=== PATIENT | female | born 1935 | race Caucasian/White ===

== ENCOUNTER 2016-07-10 09:42 | Day surgery (SDC) | payer MEDICARE, MEDICAID ==
[~2016-07-10 09:42] MED LIST: LACTATED RINGERS 1,000 ML IV SCH
[2016-07-10] MEDS ORDERED: IV START KIT ONE (10:09)
[2016-07-10] MEDS ORDERED: LACTATED RINGERS 0 ML ONE (10:09)
[2016-07-10] MEDS ORDERED: SODIUM CHLORIDE 0.9% 1,000 ML ONE (10:28)
[2016-07-10] MEDS ORDERED: ONDANSETRON 4 MG/2ML 2 ML VIAL ONE (10:53)
[2016-07-10] MEDS ORDERED: PROPOFOL 20 ML IV ONE (11:06)
[2016-07-10] MEDS ORDERED: ONDANSETRON 4 MG/2ML 2 ML VIAL IV ONE (11:30)
[2016-07-10] MEDS ORDERED: SODIUM CHLORIDE 0.9% 1,000 ML IV SCH (11:35)
[2016-07-10 16:26] LABS: HELICOBACTER PYLORII DETECTION NEGATIVE (NEGATIVE)
--- NOTE | 2016-07-14 14:14 | SURGPATH ---
[facility] [address] [place] [id number] Patient Name: AYE KENNEDY MR#: [id number] : 1935 Gender: F Specimen #: [id number] Collected: 07/10/2016 Received: 07/13/2016 Reported: 07/14/2016 Submitting Phys: JOYCE RICE Copy To Phys: [facility] Clinical History / Pre-Operative Diagnosis: PERIUMBILICAL PAIN, NAUSEA, HEARTBURN Specimen Source / Surgical Procedure Performed: 1) DUODENAL BIOPSY RULE OUT GIARDIA AND CELIAC SPRUE 2) ANTRUM BIOPSY RULE OUT GASTRITIS 3) PROXIMAL ASCENDING POLYP Interpretation: 1. DUODENUM, BIOPSY: - NO DIAGNOSTIC ABNORMALITIES 2. STOMACH, ANTRUM, BIOPSY: - NO DIAGNOSTIC ABNORMALITIES 3. COLON, PROXIMAL ASCENDING, POLYP, POLYPECTOMY: - SIX FRAGMENTS OF TUBULAR ADENOMA Electronically Signed Out Radha Caslilas M.D. Gross Description: The specimen is received in three formalin filled containers, labeled with the patient's name. 1. The specimen is labeled "duodenal" and consists of two irregularly shaped fragment(s) of dougherty tissue measuring 0.5 x 0.1 x 0.1 cm. and 0.2 x 0.1 x 0.1 cm. The specimen is entirely submitted in cassette 1A. 2. The specimen is labeled "antrum" and consists of two irregularly shaped fragment(s) of dougherty tissue measuring 0.3 x 0.1 x 0.1 cm. and 0.3 x 0.1 x 0.1 cm. The specimen is entirely submitted in cassette 2A. 3. The specimen is labeled "antrum" and consists of six irregularly shaped fragment(s) of dougherty tissue ranging from 0.4 x 0.6 x 0.2 cm. to 0.3x 0.3 x 0.3 cm. The specimen is entirely submitted in cassette 3A. Microscopic Description: Part 1: Sections show duodenal mucosa with overall intact architecture with a villous to crypt ratio of three to one. No increased intraepithelial lymphocytes, gastric metaplasia, active duodenitis, or evidence of Giardia are seen on routine stain. No malignancy is seen. Part 2: Sections show gastric antral and oxyntic mucosa with overall intact architecture. No significant active or chronic inflammation is seen. No Helicobacter organisms are seen on routine stain. No dysplasia or malignancy is seen. Part 3: Six fragments of colonic mucosa are seen, which show crowded glands lined by hyperchromatic crowded epithelial cells. No high-grade dysplasia or carcinoma is seen. 1: [id number] 2: [id number] 3: 88677 R10.13 D12.2
== END 2016-07-10 12:55 | disposition home or self-care (01) ==
LOC: SDC 09:42
PROVIDERS: ATTEND Internal Medicine Gastroenterology
PROC: 0DB98ZX Excision of Duodenum, Via Natural or Artificial Opening Endoscopic, Diagnostic (ICD-10-PCS; principal; 2016-07-10)
PROC: 0DB68ZX Excision of Stomach, Via Natural or Artificial Opening Endoscopic, Diagnostic (ICD-10-PCS; 2016-07-10)
PROC: 0DBK8ZX Excision of Ascending Colon, Via Natural or Artificial Opening Endoscopic, Diagnostic (ICD-10-PCS; 2016-07-10)
DX: Z12.11 Encounter for screening for malignant neoplasm of colon (principal); D12.2 Benign neoplasm of ascending colon; K64.1 Second degree hemorrhoids; Z86.010 Personal history of colon polyps; Z87.891 Personal history of nicotine dependence; K29.70 Gastritis, unspecified, without bleeding; R10.33 Periumbilical pain; R11.2 Nausea with vomiting, unspecified; R13.10 Dysphagia, unspecified; R19.7 Diarrhea, unspecified; E11.22 Type 2 diabetes mellitus with diabetic chronic kidney disease; I12.0 Hypertensive chronic kidney disease with stage 5 chronic kidney disease or end stage renal disease; N18.6 End stage renal disease; Z99.2 Dependence on renal dialysis; J44.9 Chronic obstructive pulmonary disease, unspecified; Z99.81 Dependence on supplemental oxygen; I48.91 Unspecified atrial fibrillation; Z79.01 Long term (current) use of anticoagulants; G47.30 Sleep apnea, unspecified; F41.9 Anxiety disorder, unspecified; Z88.5 Allergy status to narcotic agent; Z88.8 Allergy status to other drugs, medicaments and biological substances
CPT/HCPCS: 87081; 43239; 45385; J2405; J7030